=== PATIENT | female | born 1980 | race Two or more races ===

== ENCOUNTER 2023-06-20 09:21 | Outpatient (AMB) | payer OTHER, SELFPAY ==
--- NOTE | 2023-06-20 09:46 | A.SPINEOV_ITS ---
Intake Intake Visit Reasons: Degenerative disc disease/thoracic spine Intake Note: Ms. Astudillo is here today c/o constant mid to low back pain. MRI done @ [place]. Brassiere Cup Mold Cutter Required: No Assessment & Plan Assessment & Plan (1) Lumbar stenosis: Code(s): M48.061 - Spinal stenosis, lumbar region without neurogenic claudication Plan Dear Jose Thank you for referring Mrs Astudillo to our office today. This is a 43-year-old female who just had heart surgery about a week ago, triple bypass who presents today for evaluation of back pain radiating down into her legs into her calves and feet when she stands and walks. It has been going on for about 7 or 8 months. She tried some physical therapy. She has not tried any injections yet. She was taking medications such as Motrin Tylenol tramadol prior to her open heart surgery. She had a thoracic MRI which did not show any significant findings. There is a history of scoliosis in her chart as well. She had a lot of difficulty giving me much detail. PMH: She just recently had open-heart surgery maybe a week ago or so, she has poorly-controlled diabetic, her bottom stop attacher who was with her told me she had such bad anemia before her open-heart surgery they did transfuse her 3 units of blood. History of anxiety, depression, bipolar, cholecystectomy. She has 2 stents in the right side of her chest and 1 on her left leg. Social hx: Quit smoking a few months ago Medications: She can not recall any of her medications but she does believe she is on a blood thinner Allergies: No allergies listed Physical exam: She is walking with a walker, she is slow to stand. I could not really examine her upper extremities because her chest was really sore from the incision her sternum. Reflexes and from what I can get the lower extremities were normal and strength appeared normal. Imaging review: She had a thoracic MRI at [facility] which was more less unr emarkable. There was an abdominal CT at [facility] which I reviewed which does appear to show stenosis at L3-4 and L4-5 but there are limitations with the study. Impression: 43-year-old presents to the office today for evaluation of low back pain going into her legs which I suspect is coming from stenosis at L3-4 and L4- 5 which I see on the CT but there are limitations to the study which limit me from giving an accurate opinion. She just underwent open our surgery and I have very little information regarding what her actual medical problems are. Her boyfriend who is here with her believes that she is on some kind of blood thinner but could remember the name. I think at this point we should just take a step back and reassess her in 6 months when she has had a chance to recover from all these medical issues. At that time we can order an MRI to symptoms have not gone away. Thank you for allowing us to care for your patient. The total time spent with this visit with this patient was 45 minutes reviewing history, physical exam, lumbar CT and thoracic MRI imaging review, and implementation of treatment plan or further diagnostic testing Oliver Saini MD,PhD [facility] Coding Level of Care Code New Pt Level 4 (58113) Diagnoses Lumbar stenosis M48.061
== END 2023-06-20 10:22 | disposition home or self-care (01) ==
PROVIDERS: Referring Provider Physician Assistant; Visit Provider Physician Assistant
DX: M48.061 Spinal stenosis, lumbar region without neurogenic claudication (principal)
CPT/HCPCS: 99204

== ENCOUNTER → 2023-06-20 09:21 | Outpatient (BNVA) | payer OTHER, SELFPAY | PROVIDERS: Referring Provider Physician Assistant; Visit Provider Physician Assistant ==

== ENCOUNTER → 2023-11-25 14:27 | Outpatient (BNVA) | payer OTHER, SELFPAY | PROVIDERS: Visit Provider Physician Assistant ==

== ENCOUNTER 2023-11-27 13:02 | Outpatient (AMB) | payer OTHER, SELFPAY ==
--- NOTE | 2023-11-27 13:07 | HO.SPINEOV ---
Intake Intake Visit Reasons: follow up Intake Note: Ms. Astudillo is here today for her 6Month F/u Silk Examiner Required: Yes Silk Examiner Name: Tablet Assessment & Plan Assessment & Plan (1) Lumbar stenosis: Code(s): M48.061 - Spinal stenosis, lumbar region without neurogenic claudication Plan Mrs Astudillo returns to see us, with complaints of bilateral leg pains. The last time we saw her she had undergone bypass surgery and was just almost within a week or 2 out of surgery. We opted due to lack of imaging and the acuity of her surgery to just reassess her in 6 months. She continues to have primarily right leg pain at this point, but has been found to have severe stenosis in the right femoral artery. She is going to undergo bypass by at [facility]. She also remains on a blood thinner. Based on the previous CT imaging done at [facility] that we had which was limited in its ability to assess her stenosis, it is probably more likely that the stenosis in her legs causing the symptoms rather than her back. She does have chronic back pain. We can reassess her after the bypass surgery. Total amount of time spent in this visit was 20 minutes in discussion of symptoms, lumbar CT at [facility] imaging results and subsequent plan of care Oliver Saini MD,PhD [facility] Coding Level of Care Code Est Pt Level 3 (71283) Diagnoses Lumbar stenosis M48.061
== END 2023-11-27 13:21 | disposition home or self-care (01) ==
PROVIDERS: Visit Provider Physician Assistant
DX: M48.061 Spinal stenosis, lumbar region without neurogenic claudication (principal)
CPT/HCPCS: 99213

== ENCOUNTER → 2023-11-27 13:02 | Outpatient (BNVA) | payer OTHER, SELFPAY | PROVIDERS: Visit Provider Physician Assistant ==

== ENCOUNTER 2024-06-28 13:05 | Outpatient (AMB) | payer OTHER, SELFPAY ==
--- NOTE | 2024-06-28 13:20 | HO.SPINEOV ---
Intake Visit Reasons: 6 months f/up Intake Note: Ms. Astudillo is here today for a 6 month F/u. Energy Efficiency Engineer Required: No Assessment & Plan Assessment & Plan (1) Lumbar stenosis: Code(s): M48.061 - Spinal stenosis, lumbar region without neurogenic claudication Category: Medical Plan Mrs Astudillo is following up with us today. She continues to have back pain and despite her fem-pop bypass she also continues to have pain and numbness going down her right leg. We have been postponing looking at her lumbar spine due to all the other medical issue she has had dating back to the last year more. At this point since she has recovered from the bypass and the heart surgery, we should investigate her lumbar issues a little more thoroughly now. I will get a lumbar MRI, they prefer to do it in [place] at [facility]. We will see her back in the office once it is completed. Total amount of time spent in this visit was 20 minutes in discussion of symptoms, ordering MRI results and subsequent plan of care Oliver Saini MD,PhD [facility] Orders: Orders MR lumbar spine wo con Today M48.061 - Spinal stenosis, lumbar region without neurogenic claudication Coding Level of Care Code Est Pt Level 3 (23492) Diagnoses Lumbar stenosis M48.061
== END 2024-06-28 14:36 | disposition home or self-care (01) ==
LOC: HO.HNS 13:06
PROVIDERS: Visit Provider Physician Assistant
DX: M48.061 Spinal stenosis, lumbar region without neurogenic claudication (principal)
CPT/HCPCS: 99213

== ENCOUNTER → 2024-06-28 13:05 | Outpatient (BNVA) | payer OTHER, SELFPAY | PROVIDERS: Visit Provider Physician Assistant ==